=== PATIENT | male | born 1980 | race African-American/Black ===

== ENCOUNTER 2022-10-13 08:29 | Day surgery (SDC) | payer OTHER ==
[2022-10-12 15:06] VITALS: BMI 29.7
[2022-10-13] MEDS ORDERED: ONDANSETRON 4 MG/2 ML VIAL IVPUSH PRN (10:28)
[2022-10-13] MEDS ORDERED: LACTATED RINGERS SOLUTION 1,000 ML IV SCH (10:30)
[2022-10-13] MEDS ORDERED: KETOROLAC TROMETHAMINE 30 MG/1 ML VIAL ONE (10:50)
[2022-10-13] MEDS ORDERED: SUCCINYLCHOLINE CHLORIDE 200 MG/10 ML SYRINGE ONE (10:50)
[2022-10-13] MEDS ORDERED: PROPOFOL 20 ML ONE (10:50)
[2022-10-13] MEDS ORDERED: ONDANSETRON 4 MG/2 ML VIAL ONE (10:50)
[2022-10-13 11:52] VITALS: TEMP 97.4
[2022-10-13 12:06] VITALS: BP 128/80; PULSE 84; RESP 20
== END 2022-10-13 12:14 | disposition home or self-care (01) ==
LOC: FECT 08:29
PROVIDERS: ATTEND Psychiatry & Neurology Psychiatry
PROC: GZB4ZZZ Other Electroconvulsive Therapy (ICD-10-PCS; principal; 2022-10-13 10:57)
DX: F25.9 Schizoaffective disorder, unspecified (principal)
CPT/HCPCS: 82962; 90870; 93005; 94760

== ENCOUNTER 2022-10-14 08:21 | Day surgery (SDC) | payer OTHER ==
[2022-10-13 17:39] VITALS: BMI 29.7
[2022-10-14 10:25] VITALS: RESP 18; TEMP 97.7
[2022-10-14 11:23] VITALS: BP 122/73; PULSE 91
== END 2022-10-14 11:11 | disposition home or self-care (01) ==
LOC: FECT 08:21
PROVIDERS: ATTEND Psychiatry & Neurology Psychiatry
PROC: GZB4ZZZ Other Electroconvulsive Therapy (ICD-10-PCS; principal; 2022-10-14 09:21)
DX: F25.9 Schizoaffective disorder, unspecified (principal)
CPT/HCPCS: 90870; 94760

== ENCOUNTER → 2022-10-18 | Day surgery (SDC) | payer OTHER ==
[2022-10-17 08:49] VITALS: BMI 29.5
[~2022-10-18] MED LIST: ACETAMINOPHEN 325 MG TABLET (FP) PO PRN; DEXAMETHASONE SOD PHOSPHATE 4 MG/1 ML VIAL ONE; KETAMINE HCL 500 MG/10 ML VIAL ONE; KETOROLAC TROMETHAMINE 30 MG/1 ML VIAL ONE; LACTATED RINGERS SOLUTION 1,000 ML IV SCH; ONDANSETRON 4 MG/2 ML VIAL ONE; PROPOFOL 20 ML ONE; SUCCINYLCHOLINE CHLORIDE 200 MG/10 ML SYRINGE ONE; ePHEDrine SULFATE 50 MG/1 ML AMPULE ONE
[2022-10-18 09:11] VITALS: RESP 16
[2022-10-18 11:32] VITALS: BP 126/91; PULSE 98; TEMP 96.2
== END | disposition home or self-care (01) ==
LOC: FECT 08:29
PROVIDERS: ATTEND Psychiatry & Neurology Psychiatry
PROC: GZB4ZZZ Other Electroconvulsive Therapy (ICD-10-PCS; principal; 2022-10-18 10:15)
DX: F25.9 Schizoaffective disorder, unspecified (principal)
CPT/HCPCS: 82962; 90870; 94760

== ENCOUNTER 2022-10-20 08:29 | Day surgery (SDC) | payer OTHER ==
[2022-10-18 16:29] VITALS: BMI 29.5
[2022-10-20 10:22] VITALS: RESP 18; TEMP 97.2
[2022-10-20 10:41] VITALS: BP 125/88; PULSE 86
== END 2022-10-20 11:51 | disposition home or self-care (01) ==
LOC: FECT 08:29
PROVIDERS: ATTEND Psychiatry & Neurology Psychiatry
PROC: GZB4ZZZ Other Electroconvulsive Therapy (ICD-10-PCS; principal; 2022-10-20 09:27)
DX: F25.9 Schizoaffective disorder, unspecified (principal)
CPT/HCPCS: 90870; 94760

== ENCOUNTER 2022-10-21 07:30 | Day surgery (SDC) | payer OTHER ==
[2022-10-19 07:51] VITALS: BMI 29.5
[2022-10-21 10:01] VITALS: RESP 19; TEMP 97.7
[2022-10-21 10:14] VITALS: BP 128/88; PULSE 90
== END 2022-10-21 10:05 | disposition home or self-care (01) ==
LOC: FECT 07:30
PROVIDERS: ATTEND Psychiatry & Neurology Psychiatry
PROC: GZB4ZZZ Other Electroconvulsive Therapy (ICD-10-PCS; principal; 2022-10-21 08:51)
DX: F25.9 Schizoaffective disorder, unspecified (principal)
CPT/HCPCS: 90870; 94760

== ENCOUNTER 2022-10-25 08:12 | Day surgery (SDC) | payer OTHER ==
[2022-10-25 08:40] VITALS: BMI 28.3
[2022-10-25 10:44] VITALS: TEMP 97.3
[2022-10-25 10:50] VITALS: BP 114/72; PULSE 92; RESP 18
== END 2022-10-25 12:27 | disposition home or self-care (01) ==
LOC: FECT 08:12
PROVIDERS: ATTEND Psychiatry & Neurology Psychiatry
PROC: GZB4ZZZ Other Electroconvulsive Therapy (ICD-10-PCS; principal; 2022-10-25 09:40)
DX: F25.1 Schizoaffective disorder, depressive type (principal)
CPT/HCPCS: 90870; 94760

== ENCOUNTER 2022-11-08 08:32 | Day surgery (SDC) | payer OTHER ==
[2022-11-02 17:50] VITALS: BMI 28.3
[2022-11-08] MEDS ORDERED: KETAMINE HCL 500 MG/10 ML VIAL ONE (11:46)
[2022-11-08 12:59] VITALS: RESP 18; TEMP 97.2
[2022-11-08 13:14] VITALS: BP 118/79; PULSE 88
== END 2022-11-08 14:05 | disposition home or self-care (01) ==
LOC: FECT 08:32
PROVIDERS: ATTEND Psychiatry & Neurology Psychiatry
PROC: GZB4ZZZ Other Electroconvulsive Therapy (ICD-10-PCS; principal; 2022-11-08 12:00)
DX: F25.9 Schizoaffective disorder, unspecified (principal)
CPT/HCPCS: 90870; 94760

== ENCOUNTER 2022-11-10 08:59 | Day surgery (SDC) | payer OTHER ==
[2022-11-08 07:18] VITALS: BMI 28.3
[2022-11-10 11:29] VITALS: RESP 20
[2022-11-10 12:20] VITALS: BP 120/84; PULSE 98; TEMP 97.1
== END 2022-11-10 12:55 | disposition home or self-care (01) ==
LOC: FECT 08:59
PROVIDERS: ATTEND Psychiatry & Neurology Psychiatry
PROC: GZB4ZZZ Other Electroconvulsive Therapy (ICD-10-PCS; principal; 2022-11-10 10:35)
DX: F25.9 Schizoaffective disorder, unspecified (principal)
CPT/HCPCS: 90870; 94760

== ENCOUNTER 2022-11-11 08:41 | Day surgery (SDC) | payer OTHER ==
[2022-11-11 09:04] VITALS: BMI 28.3
[2022-11-11 10:57] VITALS: RESP 18; TEMP 98.4
[2022-11-11 11:25] VITALS: BP 131/83; PULSE 96
== END 2022-11-11 12:30 ==
LOC: FECT 08:41
PROVIDERS: ATTEND Psychiatry & Neurology Psychiatry
PROC: GZB4ZZZ Other Electroconvulsive Therapy (ICD-10-PCS; principal; 2022-11-11 09:56)
DX: F25.9 Schizoaffective disorder, unspecified (principal)
CPT/HCPCS: 90870; 94760

== ENCOUNTER 2022-11-15 08:46 | Day surgery (SDC) | payer OTHER ==
[2022-11-14 07:07] VITALS: BMI 28.3
[2022-11-15 09:15] VITALS: TEMP 98.6
[2022-11-15] MEDS ORDERED: KETAMINE HCL 500 MG/10 ML VIAL ONE (10:17)
[2022-11-15 11:21] VITALS: RESP 18
[2022-11-15 11:49] VITALS: BP 124/81; PULSE 97
== END 2022-11-15 12:30 | disposition home or self-care (01) ==
LOC: FECT 08:46
PROVIDERS: ATTEND Psychiatry & Neurology Psychiatry
PROC: GZB4ZZZ Other Electroconvulsive Therapy (ICD-10-PCS; principal; 2022-11-15 10:27)
DX: F25.1 Schizoaffective disorder, depressive type (principal)
CPT/HCPCS: 90870; 94760

== ENCOUNTER 2022-11-17 08:31 | Day surgery (SDC) | payer OTHER ==
[2022-11-15 17:23] VITALS: BMI 28.3
[2022-11-17 13:11] VITALS: PULSE 98; RESP 16; TEMP 97.8
[2022-11-17 13:16] VITALS: BP 101/73
== END 2022-11-17 12:25 ==
LOC: FECT 08:31
PROVIDERS: ATTEND Psychiatry & Neurology Psychiatry
PROC: GZB4ZZZ Other Electroconvulsive Therapy (ICD-10-PCS; principal; 2022-11-17 10:16)
DX: F25.9 Schizoaffective disorder, unspecified (principal)
CPT/HCPCS: 90870; 94760